=== PATIENT | female | born 1975 | race Caucasian/White ===

== ENCOUNTER 2017-12-10 08:55 | Observation (INO) | payer MEDICAID, SELFPAY ==
[2017-12-06 10:55] LABS: BASOPHILS % (AUTO) 0.4 % (0-1); EOSINOPHILS # (AUTO) 0.9 X10'3 (0-0.9); EOSINOPHILS % (AUTO) 10.1 % (0-6); LYMPHOCYTES # (AUTO) 2.8 X10'3 (1.1-4.8); LYMPHOCYTES % (AUTO) 30.7 % (21-51); MEAN CORPUSCULAR HEMOGLOBIN 32.9 PG (27.0-31.0); MEAN CORPUSCULAR HGB CONC 34.8 % (33.0-36.5); MEAN CORPUSCULAR VOLUME 94.6 FL (78-98); MEAN PLATELET VOLUME 8.4 FL (7.4-10.4); MONOCYTES # (AUTO) 0.7 X10'3 (0-0.9); MONOCYTES % (AUTO) 7.7 % (2-12); NEUTROPHILS # (AUTO) 4.7 X10'3 (1.8-7.7); NEUTROPHILS % (AUTO) 51.1 % (42-75); PRE OP HEMATOCRIT 37.9 % (35.0-45.0); PRE OP HEMOGLOBIN 13.2 g/dL (12.0-16.0); PRE OP PLATELET COUNT 253 X10'3 (140-440); RED BLOOD COUNT 4.01 X10'6 (4.20-5.60); RED CELL DISTRIBUTION WIDTH 12.9 % (11.5-14.5)
[2017-12-06 11:08] LABS: ALBUMIN 3.9 G/DL (3.4-5.0); ALBUMIN/GLOBULIN RATIO 1.1 (1.1-1.5); ALKALINE PHOSPHATASE 62 IU/L (46-116); BLOOD UREA NITROGEN 18 MG/DL (7-18); BUN/CREATININE RATIO 20.5 (6.6-38.0); CALCIUM 8.9 MG/DL (8.5-10.1); CHLORIDE 105 MMOL/L (99-107); CREATININE 0.88 MG/DL (0.40-0.90); PRE OP ALT 16 U/L (30-65); PRE OP ANION GAP 6 (8-16); PRE OP AST 12 U/L (10-37); PRE OP BILIRUB, TOTAL 0.3 MG/DL (0.0-1.0); PRE OP GLUCOSE 103 MG/DL (70-104); PRE OP POTASSIUM 4.4 MMOL/L (3.4-5.1); PRE OP SODIUM 140 MMOL/L (135-145); TOTAL CARBON DIOXIDE 28.6 MMOL/L (24-32); TOTAL PROTEIN 7.3 G/DL (6.4-8.2); eGFR 71 ML/MIN
[2017-12-06 11:09] LABS: HCG SERUM QL NEGATIVE
[~2017-12-10] VITALS: Ht 170.2 cm; Wt 62.8 kg
[2017-12-10] VITALS (22 sets, daily range): BP systolic 95–125; BP diastolic 47–80
[~2017-12-10 08:55] MED LIST: CALC-1051 PO; MAGN400T6 PO; MILK500C PO; MULT-1085 PO; NIA500ERT PO; VITA150T PO; ceFOXitin 2 GM ADDvantage bag 100 ML IV ONE; famotidine 20mg tablet PO ONE
[2017-12-10] MEDS: ringers solution, lacted 1,000 ML IV SCH ×2 (09:51→16:08)
[2017-12-10] MEDS ORDERED: desflurane 240ml liquid inh. IH ONE (10:15)
[2017-12-10] MEDS ORDERED: scopolamine 1.5mg patch.TD72 TD ONE (10:29)
[2017-12-10] MEDS ORDERED: ringers solution, lacted 1,000 ML IV SCH (10:31)
[2017-12-10] MEDS ORDERED: fentaNYL/PF 50MCG/1 ML 2ML syringe IV PRN (10:35)
[2017-12-10] MEDS ORDERED: acetaminophen 1,000mg/100ml IV 100 ML IV PRN (10:35)
[2017-12-10] MEDS ORDERED: meperidine/PF 50mg/ml syringe IV PRN ×2 (10:35)
[2017-12-10] MEDS ORDERED: ketorolac trometh. 30mg/ml inj. IV ONE (10:35)
[2017-12-10] MEDS ORDERED: ondansetron/PF 4mg/2ml inj IV PRN ×2 (10:35→14:55)
[2017-12-10] MEDS ORDERED: fentaNYL/PF 50MCG/1 ML 2ML syringe ONE ×3 (10:40→13:10)
[2017-12-10] MEDS ORDERED: midazolam 2 mg/2 ml injection ONE (10:41)
[2017-12-10] MEDS ORDERED: LIDOcaine 2% 5ml jelly ONE (10:43)
[2017-12-10] MEDS ORDERED: propofol inj 20 ML IV ONE (11:20)
[2017-12-10] MEDS ORDERED: dexamethasone sod phosphate 4mg/ml inj. ONE (11:21)
[2017-12-10] MEDS ORDERED: LIDOcaine 2% (20mg/ml) 5ml vial ONE (11:21)
[2017-12-10] MEDS ORDERED: ondansetron/PF 4mg/2ml inj ONE (11:21)
[2017-12-10] MEDS ORDERED: rocuronium 10mg/ml inj IV ONE (11:21)
[2017-12-10] MEDS ORDERED: heparin 10,000 units/1 ML INJ ONE (11:27)
[2017-12-10] MEDS: methylene blue (5mg/ml) 50mg/10ml ampul IV ONE ×2 (11:55→12:25)
[2017-12-10] MEDS: meperidine/PF 50mg/ml syringe IV PRN ×5 (13:22→15:28)
[2017-12-10] MEDS: fentaNYL/PF 50MCG/1 ML 2ML syringe IV PRN ×4 (13:25→15:28)
[2017-12-10] MEDS ORDERED: HYDROmorphone/NS 1 mg/ml CADD 50 ML IV SCH ×4 (14:15→17:00)
[2017-12-10] MEDS ORDERED: CADD PCA waste documentation MC PRN (14:25)
[2017-12-10] MEDS ORDERED: naloxone 0.4 mg/ml inj IV PRN (14:25)
[2017-12-10] MEDS ORDERED: HYDROcodone/acetaminophen 10/325mg tab PO PRN (14:55)
[2017-12-10] MEDS ORDERED: ibuprofen 200mg tablet PO PRN (14:55)
[2017-12-10] MEDS: HYDROmorphone/NS 1 mg/ml CADD 50 ML IV SCH ×5 (16:36→23:00)
[2017-12-10] MEDS: calcium carbonate/vitamin D3 tablet PO SCH (17:19)
[2017-12-10] MEDS ORDERED: ceFOXitin 2 GM ADDvantage bag 100 ML IV ONE (20:00)
[2017-12-11] VITALS: BP 122/62
[2017-12-11] MEDS: HYDROmorphone/NS 1 mg/ml CADD 50 ML IV SCH ×4 (01:00→07:00)
[2017-12-11 07:06] VITALS: BP 89/42
[2017-12-11 07:25] LABS: BASOPHILS # (AUTO) 0.1 X10'3 (0-0.2); BASOPHILS % (AUTO) 0.7 % (0-1); EOSINOPHILS # (AUTO) 0.3 X10'3 (0-0.9); EOSINOPHILS % (AUTO) 2.5 % (0-6); HEMATOCRIT 32.5 % (35.0-45.0); HEMOGLOBIN 11.1 g/dl (12.0-16.0); LYMPHOCYTES # (AUTO) 2.4 X10'3 (1.1-4.8); LYMPHOCYTES % (AUTO) 17.7 % (21-51); MEAN CORPUSCULAR HEMOGLOBIN 32.5 PG (27.0-31.0); MEAN CORPUSCULAR VOLUME 95.4 FL (78-98); MEAN PLATELET VOLUME 8.1 FL (7.4-10.4); MONOCYTES # (AUTO) 1.2 X10'3 (0-0.9); NEUTROPHILS # (AUTO) 9.7 X10'3 (1.8-7.7); NEUTROPHILS % (AUTO) 70.1 % (42-75); PLATELET COUNT 206 X10'3 (140-440); RED BLOOD COUNT 3.41 X10'6 (4.20-5.60); RED CELL DISTRIBUTION WIDTH 12.8 % (11.5-14.5); WHITE BLOOD COUNT 13.8 X10'3 (4.5-11.0)
[2017-12-11] MEDS ORDERED: ibuprofen 200mg tablet PO PRN (07:55)
[2017-12-11] MEDS ORDERED: niacin 500mg ER (Niaspan) tablet PO SCH (08:00)
[2017-12-11] MEDS ORDERED: magnesium oxide 400mg tablet PO SCH (08:00)
[2017-12-11] MEDS ORDERED: multivitamins, therapeutics tablet PO SCH (08:00)
[2017-12-11] MEDS ORDERED: vitamin B comp w/Vit. C tab 1 TAB TABLET PO SCH (08:00)
[2017-12-11] MEDS: calcium carbonate/vitamin D3 tablet PO SCH (08:34)
[2017-12-11 10:54] VITALS: BP 91/51
== END 2017-12-11 11:37 | disposition home or self-care (01) ==
LOC: PAS 08:55 → SUR 3N 14:11
PROVIDERS: ADMIT Obstetrics & Gynecology; ATTEND Obstetrics & Gynecology
DX: Z98.51 Tubal ligation status (principal)
CPT/HCPCS: 36415; 49320; 58750; 80053; 84703; 85025; 96365; 96375; A4355; A6255; A6449; C1758; G0378; J0694; J1100; J1170; J1644; J2001; J2175; J2250; J2405; J2704; J3010; J7030; J7120; A7000

== ENCOUNTER 2018-01-24 19:27 | Emergency (ER) | payer MEDICAID, SELFPAY ==
[~2018-01-24] VITALS: Ht 170.2 cm; Wt 63.5 kg
[~2018-01-24 19:27] MED LIST changes: -ceFOXitin 2 GM ADDvantage bag 100 ML IV ONE; -famotidine 20mg tablet PO ONE
[2018-01-24 20:36] LABS: BASOPHILS % (AUTO) 0 % (0-1); EOSINOPHILS # (AUTO) 0.6 X10'3 (0-0.9); EOSINOPHILS % (AUTO) 4.2 % (0-6); HEMATOCRIT 41.5 % (35.0-45.0); HEMOGLOBIN 14.5 g/dl (12.0-16.0); LYMPHOCYTES # (AUTO) 0.4 X10'3 (1.1-4.8); LYMPHOCYTES % (AUTO) 3.1 % (21-51); MEAN CORPUSCULAR HEMOGLOBIN 32.5 PG (27.0-31.0); MEAN PLATELET VOLUME 8.1 FL (7.4-10.4); MONOCYTES # (AUTO) 0.6 X10'3 (0-0.9); MONOCYTES % (AUTO) 4.4 % (2-12); NEUTROPHILS # (AUTO) 11.7 X10'3 (1.8-7.7); NEUTROPHILS % (AUTO) 88.3 % (42-75); PLATELET COUNT 247 X10'3 (140-440); RED BLOOD COUNT 4.46 X10'6 (4.20-5.60); RED CELL DISTRIBUTION WIDTH 12.8 % (11.5-14.5); WHITE BLOOD COUNT 13.2 X10'3 (4.5-11.0)
[2018-01-24 20:46] LABS: PROTHROMBIN TIME 10.7 SECONDS (9.0-12.0)
[2018-01-24 20:50] LABS: ALANINE AMINOTRANSFERASE 34 U/L (12-78); ALBUMIN/GLOBULIN RATIO 1.1 (1.1-1.5); ALKALINE PHOSPHATASE 52 IU/L (46-116); AMYLASE 52 U/L (25-115); ANION GAP 14 (8-16); ASPARTATE AMINO TRANSFERASE 16 U/L (10-37); BILIRUBIN,TOTAL 0.6 MG/DL (0.1-1.0); BLOOD UREA NITROGEN 21 MG/DL (7-18); BUN/CREATININE RATIO 22.8 (6.6-38.0); CALCIUM 8.5 MG/DL (8.5-10.1); CHLORIDE 106 MMOL/L (99-107); CREATININE 0.92 MG/DL (0.40-0.90); GLUCOSE 120 MG/DL (70-104); LIPASE 359 U/L (73-393); SODIUM 140 MMOL/L (135-145); TOTAL PROTEIN 7.5 G/DL (6.4-8.2); eGFR 67 ML/MIN
[2018-01-24 21:03] LABS: URINE HCG NEGATIVE (NEG)
[2018-01-24 21:05] LABS: CLARITY,URINE CLEAR (Clear); COLOR,URINE YELLOW (Yellow); GLUCOSE, URINE NEGATIVE (Neg); KETONES,URINE TRACE mg/dl (Neg); LEUKOCYTE ESTERASE ,URINE SMALL (Neg); NITRITES, URINE NEGATIVE (Neg); OCCULT BLOOD,URINE MODERATE (Neg); PH,URINE 5.5 (4.8-8.0); PROTEIN,URINE TRACE mg/dl (Neg); UROBILINOGEN,URINE 0.2 E.U/dL (0.2-1.0)
[2018-01-24 21:06] LABS: UA COLLECTION TYPE CLN CATCH MIDSTREAM
[2018-01-24 21:13] LABS: BACTERIA,URINE 1+ /HPF (Neg); MUCUS STRANDS MODERATE /LPF (Neg); SQUAMOUS EPITHELIAL CELL,UR MODERATE /LPF (FEW)
[2018-01-24] MEDS ORDERED: normal saline 1000ML IV soln IVB ONE (22:10)
[2018-01-24] MEDS ORDERED: ondansetron/PF 4mg/2ml inj IV ONE (22:10)
[2018-01-24] MEDS ORDERED: iohexol 300mg/ml 100ml inj. ONE (22:13)
[2018-01-24] MEDS ORDERED: ONDA8TAB6 PO (23:21)
[2018-01-24 23:34] VITALS: BP 96/51
== END 2018-01-24 23:35 | disposition home or self-care (01) ==
LOC: ER 19:27
DX: R11.2 Nausea with vomiting, unspecified (principal); R10.84 Generalized abdominal pain; R19.7 Diarrhea, unspecified; R50.9 Fever, unspecified; R30.9 Painful micturition, unspecified; G43.909 Migraine, unspecified, not intractable, without status migrainosus; Z88.5 Allergy status to narcotic agent; Z88.6 Allergy status to analgesic agent; Z79.899 Other long term (current) drug therapy; Z88.8 Allergy status to other drugs, medicaments and biological substances
CPT/HCPCS: 36415; 74177; 80053; 81001; 81025; 82150; 83690; 85025; 85610; 87088; 96374; 99285; J2405; J7030; Q9967